=== PATIENT | female | born 1960 | race Caucasian/White ===

== ENCOUNTER 2023-01-28 06:02 | Emergency (ER) | payer BC, SELFPAY ==
[2023-01-28 06:09] VITALS: BP 154/114; PULSE 114; RESP 18; TEMP 36.6; O2SAT 99; BMI 47.8
--- NOTE | 2023-01-28 06:17 | XRR_ITS ---
PROCEDURE INFORMATION: Exam: XR Abdomen Exam date and time: 01/28/2023 6:39 AM Age: 62 years old Clinical indication: Constipation; Additional info: Abd pain TECHNIQUE: Imaging protocol: Radiologic exam of the abdomen. Views: Frontal supine view of the abdomen. 1 View. Total images: 1 COMPARISON: No relevant prior studies available. FINDINGS: Gastrointestinal tract: A paucity of bowel gas is noted with loops that are visualized appearing nondistended and nonobstructive. Bones/joints: Unremarkable. XR/XR KUB portable [id number] IMPRESSION: A paucity of bowel gas is noted with loops that are visualized appearing nondistended and nonobstructive.
[2023-01-28 06:56] LABS: Basophils # 0.1 10^3/uL (0.0-0.1); Basophils % 1.1 %; Eosinophils # 0.1 10^3/uL (0.0-0.8); Eosinophils % 1.5 %; Hematocrit 43.4 % (36-47); Lymphocytes # 1.9 10^3/uL (0.8-4.8); Lymphocytes % 23.1 %; Mean Corpuscular HGB Conc 32.3 g/dL (30-55); Mean Corpuscular Hemoglobin 29.6 pg (27-33); Mean Corpuscular Volume 91.8 fl (85-98); Mean Platelet Volume 9.2 fL (7.4-10.4); Monocytes # 0.7 10^3/uL (0.2-0.9); Monocytes % 8.2 %; Neutrophils % 65.9 %; Nucleated Red Blood Cells % 0 %; Platelet Count 286 10^3/cmm (157-399); Red Blood Count 4.73 10^6/uL (3.85-5.65); Red Cell Distribution Width 13.3 % (12.1-15.1); White Blood Count 8.05 10^3/uL (3.29-11.43)
[2023-01-28 07:07] LABS: Alanine Aminotransferase 16 U/L (0-33); Albumin Level 4.2 g/dL (3.5-5.2); Alkaline Phosphatase 70 U/L (35-105); Anion Gap 13.9 (5-19); Aspartate Amino Transferase 14 U/L (0-32); Blood Urea Nitrogen 9 mg/dL (8-23); C Reactive Protein 11.2 mg/L (0.0-4.9); Calcium 9.2 mg/dL (8.5-10.5); Carbon Dioxide 27 mmol/L (22-29); Chloride 102 mmol/L (98-107); Globulin 3.7 g/dL (1.3-4.6); Glomerular Filtration Rate 63.4 mL/min (90-130); Glucose 105 mg/dL (65-115); Lipase 32 U/L (13-60); Osmolality Calculated 287 mOsm/kg (285-295); Potassium 3.9 mmol/L (3.5-5.1); Sodium 139 mmol/L (136-145); Total Bilirubin 0.4 mg/dL (0.15-1.2); Total Protein 7.9 g/dL (6.6-8.7)
--- NOTE | 2023-01-28 07:40 | ED_ITS ---
HPI - Abdominal Pain General: Chief Complaint: Abdominal Pain Stated Complaint: constipation Time Seen by Provider: 01/28/23 06:17 Source: patient Mode of arrival: ambulatory History of Present Illness: 60-year-old female presents emergency room complaining of constipation. She states she has been on Ozempic for the last 3 months has had intermittent constipation last 5 days has not been able to pass any stool. She has tried laxatives stool softeners and enemas but has not had any relief. No vomiting. No dysuria urgency or frequency no fever sweats or chills. MD elicited complaint: abdominal pain Pertinent past history: constipation Onset (ago): day(s) Location: Diffuse Severity: moderate Quality: cramping Exacerbating factors: nothing Relieving factors: nothing Associated Symptoms: Denies anorexia, belching, bloating, change in bowel habits, change in stool character, chills, coffee ground emesis, constipation, GI cramping, diarrhea, dyspepsia, dysuria, excessive flatus, fever(s), heartburn, hematochezia, hematuria, hematemesis, fecal incontinence, loose stools, melena, nausea, poor appetite, syncope and vomiting Review of Systems Const: Denies: fever(s) or chills Card: Denies: syncope GI: Reports: abdominal pain; Denies: nausea, vomiting, hematemesis, coffee ground emesis, heartburn, diarrhea, constipation, bloating, GI cramping, belching, excessive flatus, fecal incontinence, change in bowel habits, change in stool character, hematochezia or melena : Denies: dysuria or hematuria Physical Exam Const: GENERAL APPEARANCE: cooperative and comfortable ORIENTATION/CONS CIOUSNESS: Yes awake, Yes oriented to person, Yes oriented to place and Yes oriented to time HENMT: COMMON NORMALS: normocephalic, atraumatic and hearing grossly normal bilaterally HEAD & SCALP: normocephalic and atraumatic Resp: COMMON NORMALS: normal respiratory effort, No retractions, No use of accessory muscles and clear to auscultation bilaterally AUSCULTATION: clear to auscultation bilaterally Cardio: COMMON NORMALS: regular rate, regular rhythm and No murmurs present (Cardio) RATE: regular rate RHYTHM: regular rhythm GI: COMMON NORMALS: No hepatosplenomegaly present AUSCULTATION: Yes normoactive bowel sounds PALPATION: Yes Tenderness to palpation present (GI) (difuse), No Guarding due to palpation present (GI) and Yes No hepatosplenomegaly present Extremity: COMMON NORMALS: normal to inspection, capillary refill normal, no clubbing, cyanosis or edema, no calf tenderness and no pedal edema Neuro: SENSORIUM/ORIENTATION: Yes oriented to person, Yes oriented to place and Yes oriented to time Skin: COMMON NORMALS: no rashes or lesions noted GENERAL SKIN EXAM: no rashes or lesions noted Course Vital Signs: Vital signs: Vital Signs Temperature 97.8 F 01/28/23 06:09 Pulse Rate 114 H 01/28/23 06:09 Respiratory Rate 18 01/28/23 06:09 Blood Pressure 154/114 01/28/23 06:09 Pulse Oximetry 99 01/28/23 06:09 MDM - Abdominal Pain Medical Decision Making Minimal results from enema. Patient prefers at this point to go home and try the laxatives. Discharge home lactulose to use every 2 hours until desired results achieved. Recommend continuing polyethylene glycol on a daily basis to prevent constipation in the future follow-up with primary care Medical Records I reviewed the patient's medical records. Lab Data I reviewed the patient's lab results. 01/28/23 06:30 01/28/23 06:30 Labs/Radiology: Radiology Impressions KUB X-Ray 01/28/23 06:17 IMPRESSION: A paucity of bowel gas is noted with loops that are visualized appearing nondistended and nonobstructive. Laboratory Results WBC 8.05 10^3/uL (3.29-11.43) 01/28/23 06:30 RBC 4.73 10^6/uL (3.85-5.65) 01/28/23 06:30 Hgb 14.00 g/dL (11.27-16.99) 01/28/23 06:30 Hct 43.4 % (36-47) 01/28/23 06:30 MCV 91.8 fl (85-98) 01/28/23 06:30 MCH 29.6 pg (27-33) 01/28/23 06:30 MCHC 32.3 g/dL (30-55) 01/28/23 06:30 RDW 13.3 % (12.1-15.1) 01/28/23 06:30 Plt Count 286 10^3/cmm (157-399) 01/28/23 06:30 MPV 9.2 fL (7.4-10.4) 01/28/23 06:30 Neut % (Auto) 65.9 % 01/28/23 06:30 Lymph % (Auto) 23.1 % 01/28/23 06:30 [place] % (Auto) 8.2 % 01/28/23 06:30 Eos % (Auto) 1.5 % 01/28/23 06:30 Baso % (Auto) 1.1 % 01/28/23 06:30 Neut # (Auto) 5.30 10^3/uL (1.8-7.7) 01/28/23 06:30 Lymph # (Auto) 1.9 10^3/uL (0.8-4.8) 01/28/23 06:30 [place] # (Auto) 0.7 10^3/uL (0.2-0.9) 01/28/23 06:30 Eos # (Auto) 0.1 10^3/uL (0.0-0.8) 01/28/23 06:30 Baso # (Auto) 0.1 10^3/uL (0.0-0.1) 01/28/23 06:30 Nucleated RBC % (auto) 0 % 01/28/23 06:30 Nucleated RBCs # 0.0 /100WBC 01/28/23 06:30 Sodium 139 mmol/L (136-145) 01/28/23 06:30 Potassium 3.9 mmol/L (3.5-5.1) 01/28/23 06:30 Chloride 102 mmol/L (98-107) 01/28/23 06:30 Carbon Dioxide 27 mmol/L (22-29) 01/28/23 06:30 Anion Gap 13.9 (5-19) 01/28/23 06:30 BUN 9 mg/dL (8-23) 01/28/23 06:30 Creatinine 0.9 mg/dL (0.5-0.9) 01/28/23 06:30 GFR Calculation 63.4 mL/min (90-130) L 01/28/23 06:30 Glucose 105 mg/dL (65-115) 01/28/23 06:30 Calculated Osmolality 287 mOsm/kg (285-295) 01/28/23 06:30 Calcium 9.2 mg/dL (8.5-10.5) 01/28/23 06:30 Total Bilirubin 0.4 mg/dL (0.15-1.2) 01/28/23 06:30 AST 14 U/L (0-32) 01/28/23 06:30 ALT 16 U/L (0-33) 01/28/23 06:30 Alkaline Phosphatase 70 U/L (35-105) 01/28/23 06:30 C-Reactive Protein 11.2 mg/L (0.0-4.9) H 01/28/23 06:30 Total Protein 7.9 g/dL (6.6-8.7) 01/28/23 06:30 Albumin 4.2 g/dL (3.5-5.2) 01/28/23 06:30 Globulin 3.7 g/dL (1.3-4.6) 01/28/23 06:30 Lipase 32 U/L (13-60) 01/28/23 06:30 All radiology interpretation(s) finalized by discharge Discharge Plan Discharge Patient Disposition: Home Clinical Impression: Constipation Condition: Stable Prescriptions: New lactulose 10 gram/15 mL (15 mL) solution 20 g PO Q2H 1 Days Qty: 360 0RF Rx Instructions: until desired laxative effect Discharge Orders: Discharge ED (Routine); Ordered 01/28/23 Ordered By: Sohail Pope Referrals: Janene Trent MD [Primary Care Provider] - Discharge Diet: Clear Liquid Discharge Activity: Increase activity as tolerated Patient Instructions: Constipation (ED), Opioid Safety, Pain Management Coding Level of Care Code 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
== END 2023-01-28 10:05 | disposition home or self-care (01) ==
PROVIDERS: Emergency Medicine; Emergency Provider Family Medicine; PCP Family Medicine
DX: K59.00 Constipation, unspecified (principal)
CPT/HCPCS: 74018; 80053; 83690; 85025; 86140; 99284

== ENCOUNTER 2024-07-10 05:23 | Emergency (ER) | payer BC, SELFPAY ==
[2024-07-10 05:38] VITALS: BP 172/126; PULSE 117; RESP 20; TEMP 36.1; O2SAT 94; BMI 44.2
[2024-07-10 05:49] LABS: Basophils # 0.1 10^3/uL (0.0-0.1); Basophils % 0.6 %; Eosinophils # 0.4 10^3/uL (0.0-0.8); Eosinophils % 3.1 %; Hematocrit 43.1 % (36-47); Lymphocytes # 2.2 10^3/uL (0.8-4.8); Lymphocytes % 16.6 %; Mean Corpuscular HGB Conc 31.6 g/dL (30-55); Mean Corpuscular Hemoglobin 29.7 pg (27-33); Mean Corpuscular Volume 94.1 fl (85-98); Mean Platelet Volume 9.2 fL (7.4-10.4); Monocytes % 7.3 %; Neutrophils # 9.47 10^3/uL (1.8-7.7); Neutrophils % 71.7 %; Nucleated Red Blood Cells % 0 %; Platelet Count 285 10^3/cmm (157-399); Red Blood Count 4.58 10^6/uL (3.85-5.65); Red Cell Distribution Width 13.2 % (12.1-15.1); White Blood Count 13.21 10^3/uL (3.29-11.43)
--- NOTE | 2024-07-10 05:51 | ED_ITS ---
HPI - Abdominal Pain 2 General: Chief Complaint: Abdominal Pain Stated Complaint: ABD Pain Time Seen by Provider: 07/10/24 05:51 History of Present Illness: 63-year-old female presents emergency ro om with sudden onset of left upper quadrant pain. Worse when she takes a deep breath and when she moves. No history of previous surgery. She denies dysuria urgency or frequency did not have any pain yesterday began suddenly shortly after she woke up this morning. No gross hematuria no diarrhea. Initial nurses note says left lower quadrant pain but on exam is definitely left upper quadrant. Associated Symptoms: Denies chills, diarrhea, dysuria, fever(s), nausea and vomiting Related Data Home Medications ?Medication ?Instructions ?Recorded ?Confirmed acetaminophen 325 mg tablet 325 mg PO QID PRN Fever Or Pain 07/10/24 07/10/24 (Tylenol) carvedilol 12.5 mg tablet 12.5 mg PO TID 07/10/2406/22 furosemide 40 mg tablet (Lasix) 20 mg PO DAILY PRN Diogo ma 07/10/24 07/10/24 glucosamine sulfate 500 mg tablet 500 mg PO DAILY 06/2207/10/24 (Glucosamine) ibuprofen 200 mg tablet (Advil) 600 mg PO Q6H PRN Feve r Or Pain 07/10/24 07/10/24 lisinopril 20 mg tablet 20 mg PO DAILY 07/10/2406/22 rosuvastatin 20 mg tablet (Crestor) 20 mg PO BEDTIME 0 07/10/24 07/10/24 spironolactone 25 mg tablet 25 mg PO QAM 07/10/2406/22 turmeric 400 mg capsule 400 mg PO DAILY 07/10/24 Previous Rx's ?Medication ?Instructions ?Recorded hydrocodone 5 mg-acetaminophen 325 1 tab PO Q6H PRN pa in #10 tabs 07/10/24 mg tablet levofloxacin 750 mg tablet 750 mg PO DAILY 7 days #7 t abs 07/10/24 Allergies Allergy/AdvReac Type Severity Reaction Status Date / Time No Known Allergies Allergy Verified 07/10/24 05:39 Review of Systems 2 Const: Denies: fever(s) or chills Card: Denies: chest pain Resp: Reports: dyspnea and pain on inspiration (Left upper quadrant left lower lung field) GI: Reports: abdominal pain; Denies: nausea, vomiting or diarrhea : Denies: dysuria, urinary frequency or urinary urgency Musc: Denies: neck pain or back pain Skin/Breast: Denies: rash Physical Exam 2 Const: ORIENTATION/CONSCIOUSNESS: Yes awake, Yes oriented to person, Yes oriented to place and Yes oriented to time HENMT: COMMON NORMALS: normocephalic, atraumatic and hearing grossly normal bilaterally HEAD & SCALP: normocephalic and atraumatic Resp: COMMON NORMALS: normal respiratory effort, No retractions, No use of accessory muscles and clear to auscultation bilaterally AUSCULTATION: clear to auscultation bilaterally Cardio: COMMON NORMALS: regular rate, regular rhythm and No murmurs present (Cardio) RATE: regular rate RHYTHM: regular rhythm GI: COMMON NORMALS: Soft to palpation and No hepatosplenomegaly present A USCULTATION: Yes normoactive bowel sounds PALPATION: Yes Soft to palpation, Yes Tenderness to palpation present (GI) Details: LUQ, No Guarding due to palpation present (GI) and Yes No hepatosplenomegaly present Extremity: COMMON NORMALS: normal to inspection, capillary refill normal, no clubbing, cyanosis or edema, no calf tenderness and no pedal edema Neuro: SENSORIUM/ORIENTATION: Yes oriented to person, Yes oriented to place and Yes oriented to time Skin: COMMON NORMALS: no rashes or lesions noted GENERAL SKIN EXAM: no rashes or lesions noted Course 2 Vital Signs: Vital signs: Vital Signs Temperature 97.0 F L 07/10/24 05:38 Pulse Rate 81 07/10/24 11:01 Respiratory Rate 16 07/10/24 10:08 Blood Pressure 153/93 07/10/24 11:01 Pulse Oximetry 98 07/10/24 11:01 Oxygen Delivery Me thod Room Air 07/10/24 10:08 MDM - Abdominal Pain Medical Decision Making Slight pneumonia at the left base. Patient also has some very mild hematuria slight leukocytosis. She states she has had the hematuria in the past there is no sign of stone on the CT. Question of nonspecific colitis on the CT however patient's not really had significant amounts of diarrhea is not having any now. Treat for pneumonia with antibiotics. Hydrocodone given for her pleuritic pain. Follow-up if not improving. Patient encouraged follow-up with primary care doctor regarding the blood in the urine for the next 10 to 14 days Medical Records I reviewed the patient's medical records. Lab Data I reviewed the patient's lab results. 07/10/24 05:42 07/10/24 05:42 Labs/Radiology: Radiology Impressions Abdomen/Pelvis CT 07/10/24 06:01 IMPRESSION: 1. Underdistention versus mild wall thickening of the sigmoid colon with liquefied stool and air-fluid levels in the colon. Mild nonspecific colitis could produce this appearance. 2. Cardiomegaly and small left pleural effusion. 3. Additional findings, as above. COMMENTS: Consistent with the [employer]'s Incidental Findings Committee white paper (J Am Negin Radiol 2018): Any incidental renal lesion less than 1 cm or classified as too small to characterize, or any incidental cystic renal lesion characterized as simple-appearing, is likely benign. No follow-up imaging is recommended for these lesions per consensus recommendations based on imaging criteria. Chest X-Ray 07/10/24 06:07 Impression: 1. Cardiomegaly and left pleural effusion. 2. Minimal patchy opacity in left lower lobe which could represent atelectasis and/or minimal pneumonia. Laboratory Results WBC 13.21 10^3/uL (3.29-11.43) H 07/10/24 05:42 RBC 4.58 10^6/uL (3.85-5.65) 07/10/24 05:42 Hgb 13.60 g/dL (11.27-16.99) 07/10/24 05:42 Hct 43.1 % (36-47) 07/10/24 05:42 MCV 94.1 fl (85-98) 07/10/24 05:42 MCH 29.7 pg (27-33) 07/10/24 05:42 MCHC 31.6 g/dL (30-55) 07/10/24 05:42 RDW 13.2 % (12.1-15.1) 07/10/24 05:42 Plt Count 285 10^3/cmm (157-399) 07/10/24 05:42 MPV 9.2 fL (7.4-10.4) 07/10/24 05:42 Neut % (Auto) 71.7 % 07/10/24 05:42 Lymph % (Auto) 16.6 % 07/10/24 05:42 [place] % (Auto) 7.3 % 07/10/24 05:42 Eos % (Auto) 3.1 % 07/10/24 05:42 Baso % (Auto) 0.6 % 07/10/24 05:42 Neut # (Auto) 9.47 10^3/uL (1.8-7.7) H 07/10/24 05:42 Lymph # (Auto) 2.2 10^3/uL (0.8-4.8) 07/10/24 05:42 [place] # (Auto) 1.0 10^3/uL (0.2-0.9) H 07/10/24 05:42 Eos # (Auto) 0.4 10^3/uL (0.0-0.8) 07/10/24 05:42 Baso # (Auto) 0.1 10^3/uL (0.0-0.1) 07/10/24 05:42 Nucleated RBC % (auto) 0 % 07/10/24 05:42 Nucleated RBCs # 0.0 /100WBC 07/10/24 05:42 Sodium 136 mmol/L (136-145) 07/10/24 05:42 Potassium 4.4 mmol/L (3.5-5.1) 07/10/24 05:42 Chloride 101 mmol/L (98-107) 07/10/24 05:42 Carbon Dioxide 22 mmol/L (22-29) 07/10/24 05:42 Anion Gap 17.4 (5-19) 07/10/24 05:42 BUN 25 mg/dL (8-23) H 07/10/24 05:42 Creatinine 0.9 mg/dL (0.5-0.9) 07/10/24 05:42 GFR Calculation 63.2 mL/min (90-130) L 07/10/24 05:42 Glucose 104 mg/dL (65-115) 07/10/24 05:42 Calculated Osmolality 287 mOsm/kg (285-295) 07/10/24 05:42 Calcium 10.6 mg/dL (8.5-10.5) H 07/10/24 05:42 Total Bilirubin 0.4 mg/dL (0.15-1.2) 07/10/24 05:42 AST 16 U/L (0-32) 07/10/24 05:42 ALT 18 U/L (0-33) 07/10/24 05:42 Alkaline Phosphatase 90 U/L (35-105) 07/10/24 05:42 C-Reactive Protein 16.3 mg/L (0.0-4.9) H 07/10/24 05:42 Total Protein 8.5 g/dL (6.6-8.7) 07/10/24 05:42 Albumin 4.1 g/dL (3.5-5.2) 07/10/24 05:42 Globulin 4.4 g/dL (1.3-4.6) 07/10/24 05:42 Lipase 54 U/L (13-60) 07/10/24 05:42 Urine Color Yellow (Yellow) 07/10/24 08:32 Urine Appearance Clear (CLEAR) 07/10/24 08:32 Urine pH 5.5 (5-7) 07/10/24 08:32 Ur Specific [place] >= 1.099 (1.005-1.030) H 07/10/24 08:32 Urine Protein Trace (Negative) A 07/10/24 08:32 Urine Glucose (UA) Negative (Normal) 07/10/24 08:32 Urine Ketones Negative (Negative) 07/10/24 08:32 Urine Blood Negative (Negative) 07/10/24 08:32 Urine Nitrate Negative (Negative) 07/10/24 08:32 Urine Bilirubin Negative (Negative) 07/10/24 08:32 Urine Urobilinogen 0.2 mg/dL (Negative) 07/10/24 08:32 Ur Leukocyte Esterase Negative (Negative) 07/10/24 08:32 Urine RBC 11-20 /hpf (0-2) H 07/10/24 08:32 Urine WBC 0-5 /hpf (0-5) 07/10/24 08:32 Ur Squamous Epith Cells 6-10 /hpf (0-5) 07/10/24 08:32 Amorphous Sediment Not Reportable 07/10/24 08:32 Urine Bacteria Trace /hpf (NONE) 07/10/24 08:32 Hyaline Casts 0-4 /lpf H 07/10/24 08:32 All radiology interpretation(s) finalized by discharge Discharge Plan Discharge Patient Disposition: Home Clinical Impression: Pneumonia, Hematuria Condition: Stable Prescriptions: New levofloxacin 750 mg tablet 750 mg PO DAILY 7 Days Qty: 7 0RF hydrocodone-acetaminophen 5-325 mg tablet 1 tab PO Q6H PRN (Reason: pain) Qty: 10 0RF No Action acetaminophen [Tylenol] 325 mg Tablet 325 mg PO QID PRN (Reason: Fever Or Pain) carvedilol 12.5 mg tablet 12.5 mg PO TID glucosamine sulfate [Glucosamine] 500 mg Tablet 500 mg PO DAILY Rx Instructions: administer with a meal ibuprofen [Advil] 200 mg Tablet 600 mg PO Q6H PRN (Reason: Fever Or Pain) turmeric 400 mg Capsule 400 mg PO DAILY furosemide [Lasix] 40 mg Tablet 20 mg PO DAILY PRN (Reason: Edema) lisinopril 20 mg Tablet 20 mg PO DAILY spironolactone 25 mg Tablet 25 mg PO QAM rosuvastatin [Crestor] 20 mg Tablet 20 mg PO BEDTIME Discharge Orders: Discharge ED (Routine); Ordered 07/10/24 Ordered By: Sohail Pope Referrals: Janene Trent MD [Primary Care Provider] - Patient Instructions: Opioid Safety, Pain Management Activity Restrictions/Additional Instructions: Thank you for choosing [facility] [place] for your healthcare needs today. It is very important that you follow up as instructed or that you return to the Emergency Department should you have concerns or if your condition changes or worsens in any way. You are seen in the emergency room with complaints of a left flank pain. There was a small amount of blood in your urine but on the CT there is no sign of kidney stone. There is some sign of a left lower lobe pneumonia. Will start you on some oral antibiotics. You should follow-up with your doctor if you have any worsening of your symptoms or not improving. Should recheck the blood in your urine sometime in the next 10 to 14 days. 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
--- NOTE | 2024-07-10 06:01 | CTR_ITS ---
PROCEDURE INFORMATION: Exam: CT Abdomen And Pelvis With Contrast Exam date and time: 07/10/2024 6:38 AM Age: 63 years old Clinical indication: Abdominal pain; Localized; Left lower quadrant (llq); Additional info: Abd pain TECHNIQUE: Imaging protocol: Computed tomography of the abdomen and pelvis with contrast. Axial, coronal and sagittal reformatted images were created and reviewed. Radiation optimization: All CT scans at this facility use at least one of these dose optimization techniques: automated exposure control; mA and/or kV adjustment per patient size (includes targeted exams where dose is matched to clinical indication); or iterative reconstruction. Contrast material: OMNI 350; Contrast volume: 100 ml; Contrast route: INTRAVENOUS (IV); COMPARISON: CR XR KUB portable [id number] 01/28/2023 6:39 AM RADIATION DOSE METRICS: Total DLP (mGy-cm): 2225.49 FINDINGS: Lungs: Linear/discoid stranding and groundglass at the lung bases, likely due to atelectasis and/or scarring. Pleural spaces: Small left pleural effusion. Heart: Mild cardiomegaly. Mild pericardial thickening. Diaphragm: Elevated left hemidiaphragm. Small hiatal hernia. Liver: Mild hepatomegaly. Gallbladder and biliary ducts: No radiodense gallstones. No biliary ductal dilatation. Pancreas: Unremarkable. Spleen: Unremarkable. Adrenal glands: Normal. No mass. Kidneys and ureters: 6 mm low-density right renal lesion, too small to characterize (no follow-up is indicated based on the imaging appearance). No radiodense calculi. No hydronephrosis. Stomach and bowel: Liquefied stool and air-fluid levels in the colon. Scattered colonic diverticula without evidence of diverticulitis. Underdistention versus mild wall thickening of the sigmoid colon. No obstruction. No pneumatosis. Appendix: Normal. Intraperitoneal space: No free fluid. No organized fluid collection. No free air. Vasculature: Unremarkable. No aneurysm. Lymph nodes: No pathologically enlarged lymph nodes. Urinary bladder: Unremarkable as visualized. Reproductive: Unremarkable. Bones/joints: No acute osseous abnormality. Osteopenia. Degenerative changes. Soft tissues: Unremarkable. CT/CT abdomen pelvis w con* [id number] IMPRESSION: 1. Underdistention versus mild wall thickening of the sigmoid colon with liquefied stool and air-fluid levels in the colon. Mild nonspecific colitis could produce this appearance. 2. Cardiomegaly and small left pleural effusion. 3. Additional findings, as above. COMMENTS: Consistent with the [employer]'s Incidental Findings Committee white paper (J Am Negin Radiol 2018): Any incidental renal lesion less than 1 cm or classified as too small to characterize, or any incidental cystic renal lesion characterized as simple-appearing, is likely benign. No follow-up imaging is recommended for these lesions per consensus recommendations based on imaging criteria.
--- NOTE | 2024-07-10 06:07 | XR_ITS ---
WS: [id number] Portable AP upright chest, 07/10/2024 Clinical Data: dyspnea/cough Comparison: None. Findings: There is a patchy opacity in the left lower lobe. No nodules or masses are seen. The heart is slightly enlarged. There is a small left pleural effusion. The pulmonary vascularity is not increased. No pneumothorax is seen. There are monitor leads on the chest wall. XR/XR chest 1V portable [id number] Impression: 1. Cardiomegaly and left pleural effusion. 2. Minimal patchy opacity in left lower lobe which could represent atelectasis and/or minimal pneumonia.
[2024-07-10 06:08] LABS: Alanine Aminotransferase 18 U/L (0-33); Albumin Level 4.1 g/dL (3.5-5.2); Alkaline Phosphatase 90 U/L (35-105); Anion Gap 17.4 (5-19); Aspartate Amino Transferase 16 U/L (0-32); Blood Urea Nitrogen 25 mg/dL (8-23); Calcium 10.6 mg/dL (8.5-10.5); Carbon Dioxide 22 mmol/L (22-29); Chloride 101 mmol/L (98-107); Creatinine Clr Calc Pharmacy 77.5696; Globulin 4.4 g/dL (1.3-4.6); Glomerular Filtration Rate 63.2 mL/min (90-130); Glucose 104 mg/dL (65-115); Lipase 54 U/L (13-60); Osmolality Calculated 287 mOsm/kg (285-295); Potassium 4.4 mmol/L (3.5-5.1); Sodium 136 mmol/L (136-145); Total Bilirubin 0.4 mg/dL (0.15-1.2); Total Protein 8.5 g/dL (6.6-8.7)
[2024-07-10] MEDS: ondansetron 2 mg/ML SDV 2 mL 4 MG IVP (06:09)
[2024-07-10 06:11] VITALS: BP 181/119; PULSE 114; RESP 25; O2SAT 93
[2024-07-10] MEDS: HYDROmorphone 0.5 MG/0.5 ML INJ IVP (06:11)
[2024-07-10] MEDS: ketorolac 30 mg/mL INJ IVP (06:11)
[2024-07-10 06:29] LABS: C Reactive Protein 16.3 mg/L (0.0-4.9)
[2024-07-10] MEDS: iohexol 350 mg/mL 500 mL Btl (per mL) IV (06:42)
[2024-07-10] MEDS: carvedilol 12.5 mg Tablet PO (06:54)
[2024-07-10 08:59] LABS: Bilirubin Urine Negative (Negative); Blood Urine Negative (Negative); Glucose Urine UA Negative (Normal); Ketones Urine Negative (Negative); Leukocyte Esterase Urine Negative (Negative); Nitrate Urine Negative (Negative); Protein Urine Trace (Negative); Urine Appearance Clear (CLEAR); Urine Color Yellow (Yellow); Urobilinogen Urine 0.2 mg/dL (Negative); pH Urine 5.5 (5-7)
[2024-07-10 09:04] LABS: Add Urine Microscopic? YES; Bacteria Urine Trace /hpf; Hyaline Casts Urine 0-4 /lpf; WBC Urine 0-5 /hpf (0-5)
[2024-07-10 09:29] LABS: Specific Gravity, Urine >= 1.099 (1.005-1.030); UA Slide Review UA Slide Review Perf
[2024-07-10 10:08] VITALS: BP 149/103; PULSE 87; RESP 16; O2SAT 95
[2024-07-10 11:01] VITALS: BP 153/93; PULSE 81; O2SAT 98
== END 2024-07-10 11:02 | disposition home or self-care (01) ==
PROVIDERS: Emergency Medicine; Emergency Provider Family Medicine; PCP Family Medicine
DX: J18.9 Pneumonia, unspecified organism (principal); R31.9 Hematuria, unspecified
CPT/HCPCS: 71045; 74177; 80053; 81001; 83690; 85025; 86140; 96374; 96375; 99285; J1171; J1885; J2405; J9999